=== PATIENT | female | born 1975 | race Caucasian/White ===

== ENCOUNTER 2017-01-07 22:54 | Emergency (ER) | payer OTHER ==
[~2017-01-07] VITALS: Ht 162.6 cm; Wt 90.7 kg
[2017-01-07 23:10] VITALS: BP 125/96
--- NOTE | 2017-01-08 00:35 | NUR ---
Patient to OF.
--- NOTE | 2017-01-08 00:37 | NUR ---
Dr. Tello evaluating patient.
--- NOTE | 2017-01-08 00:40 | NUR ---
41Y/F PT. PRESENTS TO ED WITH C/O CHEST PAIN X 8 HRS. PT. STATES PAIN STARTED SINCE 1899, [place], NO RADIATION. GET WORSE WHEN LYING DOWN. AAO X4, AMBULATORY WITH STEADY GAIT. ESPIRATIONS RROM AIR, EVEN AND UNLABORED. SKIN WARM AND DRY, C/O CHEST PAIN 01/03. VSS, NO S/SX OF DISTRESS AT THIS TIME. ER MD MADE AWARE OF PT. STATUS.
--- NOTE | 2017-01-08 00:46 | NUR ---
Patient discharged with v/s stable. Written and verbal after care instructions given and explained. Patient alert, oriented and verbalized understanding of instructions. Ambulatory with steady gait. All questions addressed prior to discharge. ID band removed. Patient advised to follow up with PMD. Rx of NAPROSYN 500 MG given. Patient educated on indication of medication including possible reaction and side effects. Opportunity to ask questions provided and answered. D/C BY DR. HUERTA.
[2017-01-08 04:21] VITALS: BP 125/85
== END 2017-01-08 00:46 | disposition home or self-care (01) ==
LOC: MED 22:54
DX: M94.0 Chondrocostal junction syndrome [Tietze] (principal); R03.0 Elevated blood-pressure reading, without diagnosis of hypertension
CPT/HCPCS: 99283

== ENCOUNTER 2017-12-22 04:10 | Emergency (ER) | payer OTHER ==
[~2017-12-22] VITALS: Ht 160 cm; Wt 94.3 kg
[2017-12-22 04:13] VITALS: BP 131/89
--- NOTE | 2017-12-22 04:13 | NUR ---
PT BIBA ON A 5150 HOLD DUE TO SUICIDE IDEATION. BY [place] [employer]. LAC TO RIGHT FOREARM AND NOTED LAC TO RIGHT UPPER ARM. PT REPORTS DRINKING A FEW BEERS. DENIES N/V/D; SKIN IS PINK/WARM/DRY; AAOX4 WITH EVEN AND STEADY GAIT; LUNGS CLEAR BL; HR EVEN AND REGULAR; PT DENIES ANY FEVER, CP, SOB, OR COUGH AT THIS TIME; PATIENT STATES PAIN OF 0/10 AT THIS TIME; VSS; PATIENT POSITIONED FOR COMFORT; HOB ELEVATED; BEDRAILS UP X2; BED DOWN. JUJU CASTRO MADE AWARE OF PT STATUS. Addendum: 12/22/[address] [facility] PT BIBA ON A 5150 HOLD DUE TO SUICIDE IDEATION. BY [place] [employer]. LAC TO left FOREARM AND NOTED LAC TO left UPPER ARM. PT REPORTS DRINKING A FEW BEERS. DENIES N/V/D; SKIN IS PINK/WARM/DRY; AAOX4 WITH EVEN AND STEADY GAIT; LUNGS CLEAR BL; HR EVEN AND REGULAR; PT DENIES ANY FEVER, CP, SOB, OR COUGH AT THIS TIME; PATIENT STATES PAIN OF 0/10 AT THIS TIME; VSS; PATIENT POSITIONED FOR COMFORT; HOB ELEVATED; BEDRAILS UP X2; BED DOWN. JUJU CASTRO MADE AWARE OF PT STATUS.
--- NOTE | 2017-12-22 04:14 | NUR ---
PT MARCOS BLS. TAKEN TO BED 10
--- NOTE | 2017-12-22 04:15 | NUR ---
Patient noted to have existing laceration upon arrival to ER. Wound covered with dressing. Physician informed.
--- NOTE | 2017-12-22 04:20 | NUR ---
TALKED WITH PT, PT STATED SHE DID NOT WANT TO BE HERE. SHE JUST HAD AN ARGUMENT WITH HER . PT WANTED TO LEAVE. PT INFORMED [place] [employer] PLACED HER ON 5150 HOLD AND THAT WAS EXPLAINED TO HER THAT IF SHE DID LEAVE WE WOULD HAVE NOTIFY POLICE THAT SHE HAD LEFT AND OUR FACILITY. PT'S BELONGINGS WERE PLACED IN PERSONAL BELONGINGS BAG AND GIVEN TO SECURITY. PT STATES SHE UNDERSTANDS. PT PLACED IN GOWN.
[2017-12-22] MEDS ORDERED: BACITRACIN OINT 500 UNITS/GM PKT TP ONE (04:35)
[2017-12-22 04:41] LABS: BASOPHILS # (AUTO) 0.1 K/uL (0.00-0.22); EOSINOPHILS # (AUTO) 0.2 K/uL (0-0.4); EOSINOPHILS % (AUTO) 2.1 % (0.0-4.0); HEMATOCRIT 42.2 % (36-48); HEMOGLOBIN 14.1 g/dL (12.0-16.0); LYMPHOCYTES # (AUTO) 3.5 K/uL (2.5-16.5); LYMPHOCYTES % (AUTO) 31.8 % (20.5-51.1); MEAN CORPUSCULAR HEMOGLOBIN 30 pg (27-31); MEAN CORPUSCULAR HGB CONC 33 g/dL (33-37); MEAN CORPUSCULAR VOLUME 89.9 fL (80-94); MONOCYTES % (AUTO) 9.1 % (1.7-9.3); NEUTROPHILS # (AUTO) 6.2 K/uL (1.8-7.7); PLATELET COUNT (AUTO) 286 K/uL (140-450); RED CELL DISTRIBUTION WIDTH 13.9 % (11.6-13.7); WHITE BLOOD COUNT (AUTO) 11.1 K/uL (4.8-10.8)
[2017-12-22 04:42] LABS: APPEARANCE,URINE CLEAR (CLEAR); BILIRUBIN,URINE NEGATIVE (NEGATIVE); BLOOD, URINE TRACE-I (NEGATIVE); COLOR,URINE YELLOW (YELLOW); LEUKOCYTE ESTERASE ,URINE NEGATIVE (NEGATIVE); NITRITE, URINE NEGATIVE (NEGATIVE); PH,URINE 5.5 (5.0-9.0); UGLUCOSE NEGATIVE (NEGATIVE)
--- NOTE | 2017-12-22 04:43 | NUR ---
is with pt
[2017-12-22 04:53] LABS: ANION GAP 15.3 (8-16); CARBON DIOXIDE 22.4 mmol/L (21-32); CHLORIDE 107 mmol/L (98-107); CREATININE 0.7 mg/dL (0.6-1.3); GFR ARICAN-AMERICAN 118 mL/min (>90); GLUCOSE 113 mg/dL (74-106); POTASSIUM 3.7 mmol/L (3.5-5.1); SODIUM SERUM 141 mmol/L (136-145); UREA NITROGEN, BLOOD 9 mg/dL (7-18)
[2017-12-22 04:55] LABS: BARBITURATE, URINE NEG. ng/ml (NEG <=200); BENZODIAZEPINE, URINE NEG. ng/mL (NEG <=200); CANNABINOID, URINE NEG. ng/mL (NEG <=50); COCAINE, URINE NEG. ng/mL (NEG <=300); OPIATE, URINE NEG. ng/mL (NEG <=2000); PHENCYCLIDINE SCREEN,URINE NEG. ng/mL (NEG <=25)
[2017-12-22 04:59] LABS: ALBUMIN 3.8 g/dL (3.4-5.0); ASPARTATE AMINOTRANSFERASE 15 U/L (15-37); TOTAL BILIRUBIN 0.5 mg/dL (0.0-1.0)
--- NOTE | 2017-12-22 05:02 | NUR ---
pt is resting, family at bedside
--- NOTE | 2017-12-22 05:02 | NUR ---
pt brother at bedside
[2017-12-22 05:03] LABS: ACETAMINOPHEN < 0.5 ug/ml (10-30); SALICYLATE < 2.8 mg/dL (2.8-20.0)
[2017-12-22 05:05] LABS: RBC,URINE 0-5 (RARE) /HPF (0-5); WBC,URINE 0-5 (RARE) /HPF (0-5)
--- NOTE | 2017-12-22 05:14 | NUR ---
pt mother at bedside
--- NOTE | 2017-12-22 05:18 | NUR ---
aunt at bedside
--- NOTE | 2017-12-22 05:35 | NUR ---
comfort measures were implemented. pt is laying in bed. mom is at bedside.
--- NOTE | 2017-12-22 05:53 | NUR ---
mom at bedside with pt. pt is calm and laying in bed
--- NOTE | 2017-12-22 06:13 | NUR ---
PT contacted work, [employer]. AT and spoke to Keke. let them know that she needs 3 days off due to being in the hospital.
--- NOTE | 2017-12-22 06:36 | NUR ---
PT MOVED TO BED 5
--- NOTE | 2017-12-22 06:45 | NUR ---
pt is resting in bed, emt is monitoring at bedside
[2017-12-22] MEDS ORDERED: ACETAMINOPHEN EXTRA STRENGTH 500 MG TAB PO ONE (07:10)
--- NOTE | 2017-12-22 07:25 | NUR ---
gave report to ramona thornton resting in bed vitals stable
--- NOTE | 2017-12-22 07:29 | NUR ---
REPORT RECEIVED. I RELIEVED ROMEO EMT, PT ASLEEP, SNORING AT BEDSIDE. KENAN SUP AWARE NO SITTER IS AVAILABLE AT THIS TIME. RESP EVEN AND UNLABORED, VSS. WILL CONT TO MONITOR CLOSELY.
--- NOTE | 2017-12-22 08:45 | NUR ---
GOT REPORT SAM SINHA RN
--- NOTE | 2017-12-22 09:00 | NUR ---
PT EATING BREAKFAST IN BED
--- NOTE | 2017-12-22 09:40 | NUR ---
PT RESTING IN BED, WITH EVEN AND UNLABORED BREATHING.
--- NOTE | 2017-12-22 10:30 | NUR ---
PT DAUGHTER CAME BY TO VISIT, PT IN SITTING IN BED TALKING TO DAUGHTER
--- NOTE | 2017-12-22 11:30 | NUR ---
PT EATING LUNCH WITH DAUGHTER BY BEDSIDE
--- NOTE | 2017-12-22 12:46 | NUR ---
PT ASLEEP IN BED WITH SITTER BY BEDSIDE
--- NOTE | 2017-12-22 14:05 | NUR ---
REQUEST FOR TELEPSYCH CONSULT SUBMITTED
--- NOTE | 2017-12-22 14:38 | NUR ---
PT IS SLEEPING IN BED WITH EVEN AND UNLABORED BREATHING
--- NOTE | 2017-12-22 15:18 | NUR ---
TELEPSYCH CONSULT STARTED
--- NOTE | 2017-12-22 15:57 | NUR ---
Faxed over paperwork to Rhonda Cullen and Fabricio Johnson for review. No bed vacancies at [facility], [facility], [facility], [facility], and [facility], and [facility]
--- NOTE | 2017-12-22 16:34 | NUR ---
[address] EDWARDS VIA [facility] C TELE MED. PT DENIES ANY SUICIDAL IDEATON OR HOMICIDAL IDEATION, PT AAOX4, IN NAD. DENIES ANY PAIN. VERBALIZES UNDERSTANDING TO FOLLOW UP WITH DR [id number]-PSYCH . VSS.
[2017-12-22 16:44] VITALS: BP 126/81
== END 2017-12-22 16:32 | disposition home or self-care (01) ==
LOC: MED 04:10
DX: S60.812A Abrasion of left wrist, initial encounter (principal); X78.8XXA Intentional self-harm by other sharp object, initial encounter; Y93.89 Activity, other specified; Y99.8 Other external cause status; Y92.89 Other specified places as the place of occurrence of the external cause
CPT/HCPCS: 36415; 80053; 80305; 81001; 81025; 85025; 93005; 99285; G0480; G0482

== ENCOUNTER 2018-03-31 18:24 | Emergency (ER) | payer OTHER ==
[~2018-03-31] VITALS: Ht 162.6 cm; Wt 95.3 kg
[2018-03-31 18:42] VITALS: BP 128/89
--- NOTE | 2018-03-31 21:00 | NUR ---
Pt moved to bed 7.
--- NOTE | 2018-03-31 21:00 | NUR ---
42/F CAME IN W C/O VAGINAL PLAIN WITH SPOTTING RELATED TO IUD. IUD PLACED X 4 YEARS AGO. PT REPORTS UNSUCCESSFUL IUD EXTRACTION BY OBGYN TODAY. PT ALSO REPORTS DIZZINESS. PMH: HTN, DEPRESSION, ANXIETY. TOOK IBUPROFEN AND NORCO AT 1100 WITHOUT RELIEF
--- NOTE | 2018-03-31 22:08 | NUR ---
Dr. Weiss evaluating patient at bedside.
[2018-03-31] MEDS ORDERED: KETOROLAC 60 MG/2 ML VIAL IM ONE (22:40)
[2018-03-31 23:03] VITALS: BP 134/97
--- NOTE | 2018-03-31 23:03 | NUR ---
Patient discharged with v/s stable. Written and verbal after care instructions given and explained. Patient alert, oriented and verbalized understanding of instructions. Ambulatory with steady gait. All questions addressed prior to discharge. ID band removed. Patient advised to follow up with PMD. Rx of MOTRIN, TRAMADOL given. Patient educated on indication of medication including possible reaction and side effects. Opportunity to ask questions provided and answered.
== END 2018-03-31 23:03 | disposition home or self-care (01) ==
LOC: MED 18:24
DX: R10.2 Pelvic and perineal pain (principal); Z97.5 Presence of (intrauterine) contraceptive device
CPT/HCPCS: 76856; 81002; 81025; 96372; 99284; J1885; Q0092